=== PATIENT | male | born 1985 | race Caucasian/White ===

== ENCOUNTER 2017-08-03 20:43 | Emergency (ER) | payer BC ==
[2017-08-03] MEDS ORDERED: cefTRIAXone 1 GM in Sodium Chloride 0.9% 50 ML IV ONE (21:10)
--- NOTE | 2017-08-03 21:10 | ED Physician Chart ---
ED Chief Complaint/HPI - Patient Information Date Seen:: 08/03/17 Time Seen:: 21:09 Chief Complaint:: Suprapubic abscess History of Present Illness:: 32 yo previously healthy male developed a suprapubic abscess for 3 days. He went to an urgent care center and was prescribed Bactrim DS one day ago. After taking Bactrim DS 1 tab twice, the abscess ruptured and became more painful. The patient denied fever or chills. Allergies:: Allergies Allergy/AdvReac Type Severity Reaction Status Date / Time No Known Allergies Allergy Verified 08/03/17 21:00 Vitals:: Vital Signs - 8 hr 08/03/17 21:00 Temp 97.9 F HR 98 RR 18 BP 138/86 O2 Sat % 99 ED Review of Systems - Review of Systems General/Constitutional: No fever, No chills Skin: Skin lesions Head: No headache Eyes: No loss of vision ENT: No earache Neck: No neck pain Cardio Vascular: No chest pain Pulmonary: No SOB GI: No nausea Musculoskeletal: No bone or joint pain Neurological: No focal symptoms ED Past Medical History - Past Medical History Past Medical History: No significant medical hx Social History: Non Smoker, No Alcohol, No Drug Use Surgical History: None Family Medical History - Family Member Mother Ethnicity: ED Physical Exam - Physical Examination General/Constitutional: Awake Eyes: PERRL ENMT: Nasal exam nl Neck: No nuchal rigidity Respiratory: Clear to Auscultation Cardio Vascular: RRR, No murmur, gallop, rubs, NL S1 S2 GI: No tenderness/rebounding/guarding Other comments:: A suprapubic abscess with surrounding erythema. The abscess was firm and tender , with minimal drainage from the opening of the tip of the abscess. Extremities: normal strength in all extremities Neuro/Psych: No focal deficits ED Assessment - Assessment General Assessment: Suprapubic abscess and cellulitis Assessment/Comments:: Wound culture Clean the wound with betadine and hydrogen peroxide Rocephin 1g IV Keflex 500mg q6h x 7 days Continue Bactrim DS F/u PCP or return to ER if symptoms worsen ED Septic Shock - . Is Septic Shock (SBP<90, OR Lactate>4 mmol\L) present?: No - <6hrs of presentation: Vital Signs: Vital Signs - 8 hr 08/03/17 21:00 Temp 97.9 F HR 98 RR 18 BP 138/86 O2 Sat % 99 ED Reassessment (Disposition) - Reassessment Reassessment Condition:: Improved - Patient Disposition Discharge/Transfer:: Home ED Discharge Plan - Patient Disposition Admit/Discharge/Transfer: PT DISCHARGED HOME Condition at Disposition: Improved Prescriptions: Cephalexin [Keflex] 500 mg PO Q6H #28 cap Instructions: Abscess Additional Instructions: Follow up with your primary care provider immediately. Take prescription as directed. Return to ER immediately if symptoms worsen.
== END 2017-08-03 22:05 | disposition home or self-care (01) ==
LOC: ER 20:43
DX: L03.311 Cellulitis of abdominal wall (principal)
CPT/HCPCS: 99284; 96365; 87075; 87205; 87070; J0696; Z7502; Z7610